=== PATIENT | male | born 1945 | race African-American/Black ===

== ENCOUNTER 2019-10-04 10:49 | Inpatient (IN) | payer MEDICARE ==
[~2019-10-04] VITALS: Ht 172.7 cm; Wt 108.4 kg
[2019-10-04] VITALS (12 sets, daily range): BP systolic 110–134; BP diastolic 57–84
--- NOTE | 2019-10-04 11:22 | Emergency Room Report ---
History of Present Illness General Chief Complaint: Generalized Weakness Source: Patient Present Illness HPI Patient presents with increasing weakness. He was trying to do his job today but was unable to. He feels dehydrated. He feels nauseated. There is no change in bowels. He denies any chest pain. He gets out of breath with exertion. He has diabetes but has not checked himself. He last saw his doctor 2 months ago. He has had weight loss. He feels depressed that he cannot perform his job. No fevers, chills, sore throat, palpitations, nausea, vomiting, diarrhea, constipation, dysuria, abdominal pain, joint pain, rashes, headache. 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 Nursing Documentation: PMH: Agreed; PSxH: Agreed Nursing Documentation-PMH Past Medical History: No History, Except For Hx Hypertension: Yes Hx Diabetes: Yes Review of Systems All Other Systems: negative except mentioned in HPI Physical Exam Vital Signs Date Time Temp Pulse Resp B/P (MAP) Pulse Ox O2 Delivery O2 Flow Rate FiO2 10/04/19 10:54 97.9 66 16 133/81 (98) 98 Room Air 10/04/19 11:16 100 Sp02 EP Interpretation: reviewed, normal General Appearance: no apparent distress, GCS 15, non-toxic, other - Slow to respond but appropriate Head: normocephalic Eyes: bilateral eye normal inspection, bilateral eye PERRL, bilateral eye EOMI ENT: dry mucus membranes Neck: full range of motion, supple, no meningismus Respiratory: lungs clear, normal breath sounds Cardiovascular #1: regular rate, rhythm, no edema Cardiovascular #2: 2+ radial (R) Gastrointestinal: normal inspection, non tender, no mass, non-distended, decreased bowel sounds Genitourinary: no CVA tenderness Musculoskeletal: back normal, normal range of motion, no calf tenderness Neurologic: alert, motor strength/tone normal - Subjective weakness, 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 Reason for critical care: Diabetic ketoacidosis, repeat evaluations, adjustments of fluid administration and insulin drip Possible complications: hypotension, hypertension, OH, shock, arrhythmias, metabolic acidosis, end organ damage, respiratory failure. Interventions: Fluid resuscitation, repeat evaluations, insulin drip, discussion with pharmacy, discussion with nursing staff Course: Patient presented with weight loss lack of appetite and signs of dehydration with history of diabetes. Based on labs consideration of diabetic ketoacidosis. Insulin drip begun after venous blood gas and increased fluid hydration ordered. Dosing of insulin discussed with pharmacy. Repeat evaluations based on decreasing blood glucose values. Repeat electrolytes with improvement in potassium and glucose. Insulin drip adjusted and discussed with ICU nurse. Discussed with HMO physician and admitting physician Consultations: nursing staff, family, pharmacy, O physician, admitting physician Performed by: Dr. Gates Tolerated well condition = critical Medical Decision Making Diagnostic Impression: Primary Impression: DKA (diabetic ketoacidoses) Qualified Codes: E11.10 - Type 2 diabetes mellitus with ketoacidosis without coma Additional Impression: Renal insufficiency ER Course Patient presents with weight loss, dehydration, lack of appetite and energy. Differential includes acute myocardial infarction, hyperglycemia, other electrolyte imbalance, occult neoplastic process, depression amongst others. Evaluation with EKG, chest x-ray and labs. Treatment with IV hydration. Accu- Chek ordered. EKG without injury. Chest x-ray no infiltrates. Labs with low bicarb and elevated glucose with slightly high potassium. Slightly elevated lipase. Elevated sedimentation rate. Venous blood gas ordered. VBG with metabolic acidosis. Begin insulin drip and admit to ICU - non- transferrable. Fluids continue. K will be followed but expect to drop with insulin. Discussed with Dr. Renteria that patient is non-transferable. Patient clinically improved with IV hydration. More alert with more energy. No infectious source or cardiac injury identified. Blood glucose improving. Potassium holding but in proving also. Prior to transfer to ICU discussed decreasing insulin drip dose with ER nurse. After patient in ICU I called the ICU nurse to ensure that insulin drip was decreased. It had been decreased to 4 units/h. Laboratory Tests Test 10/04/19 11:25 10/04/19 12:15 10/04/19 12:31 10/04/19 13:25 White Blood Count 3.9 K/UL (4.8-10.8) L Red Blood Count 5.81 M/UL (4.70-6.10) Hemoglobin 13.2 G/DL (14.2-18.0) L Hematocrit 43.7 % (42.0-52.0) Mean Corpuscular Volume 75 FL (80-99) L Mean Corpuscular Hemoglobin 22.7 PG (27.0-31.0) L Mean Corpuscular Hemoglobin Concent 30.1 G/DL (32.0-36.0) L Red Cell Distribution Width 14.4 % (11.6-14.8) Platelet Count 234 K/UL (150-450) Mean Platelet Volume 7.4 FL (6.5-10.1) Neutrophils (%) (Auto) % (45.0-75.0) Lymphocytes (%) (Auto) % (20.0-45.0) Monocytes (%) (Auto) % (1.0-10.0) Eosinophils (%) (Auto) % (0.0-3.0) Basophils (%) (Auto) % (0.0-2.0) Differential Total Cells Counted 100 Neutrophils % (Manual) 69 % (45-75) Lymphocytes % (Manual) 26 % (20-45) Monocytes % (Manual) 3 % (1-10) Eosinophils % (Manual) 2 % (0-3) Basophils % (Manual) 0 % (0-2) Band Neutrophils 0 % (0-8) Platelet Estimate Adequate Platelet Morphology Normal Dimorphic Red Blood Cells Polychromasia 1+ Hypochromasia 1+ Microcytosis 1+ Erythrocyte Sedimentation Rate 79 MM/HR (0-20) H Prothrombin Time 10.0 SEC (9.30-11.50) Prothrombin Time INR 0.9 (0.9-1.1) Activated Partial Thromboplast Time 24 SEC (23-33) Sodium Level 145 MMOL/L (136-145) 145 MMOL/L (136-145) Potassium Level 5.2 MMOL/L (3.5-5.1) H 4.5 MMOL/L (3.5-5.1) Chloride Level 104 MMOL/L (98-107) 106 MMOL/L (98-107) Carbon Dioxide Level 17 MMOL/L (21-32) L 21 MMOL/L (21-32) Anion Gap 24 mmol/L (5-15) H 18 mmol/L (5-15) H Blood Urea Nitrogen 34 mg/dL (7-18) H 32 mg/dL (7-18) H Creatinine 1.9 MG/DL (0.55-1.30) H 1.7 MG/DL (0.55-1.30) H Estimate Glomerular Filtration Rate 42.4 mL/min (>60) 48.2 mL/min (>60) Glucose Level 511 MG/DL (74-106) *H 446 MG/DL (74-106) H Calcium Level 9.2 MG/DL (8.5-10.1) 8.8 MG/DL (8.5-10.1) Total Bilirubin 0.7 MG/DL (0.2-1.0) Aspartate Amino Transferase (AST) 14 U/L (15-37) L Alanine Aminotransferase (ALT) 21 U/L (12-78) Alkaline Phosphatase 65 U/L (46-116) Total Creatine Kinase 88 U/L (26-308) Troponin I 0.028 ng/mL (0.000-0.056) Pro-B-Type Natriuretic Peptide 343 pg/mL (0-125) H Total Protein 7.5 G/DL (6.4-8.2) Albumin 3.2 G/DL (3.4-5.0) L Globulin 4.3 g/dL Albumin/Globulin Ratio 0.7 (1.0-2.7) L Lipase 439 U/L (73-393) H Thyroid Stimulating Hormone (TSH) 1.859 uiU/mL (0.358-3.740) Urine Color Pale yellow Urine Appearance Clear Urine pH 5 (4.5-8.0) Urine Specific [place] 1.015 (1.005-1.035) Urine Protein 1+ (NEGATIVE) H Urine Glucose (UA) 4+ (NEGATIVE) H Urine Ketones 4+ (NEGATIVE) H Urine Blood Negative (NEGATIVE) Urine Nitrite Negative (NEGATIVE) Urine Bilirubin Negative (NEGATIVE) Urine Urobilinogen Normal MG/DL (0.0-1.0) Urine Leukocyte Esterase Negative (NEGATIVE) Urine RBC 0-2 /HPF (0 - 0) H Urine WBC 0-2 /HPF (0 - 0) Urine Squamous Epithelial Cells None /LPF (NONE/OCC) Urine Bacteria Occasional /HPF (NONE) Venous Blood pH 7.278 Venous Blood Partial Pressure CO2 40.8 Venous Blood Partial Pressure O2 45.3 Venous Blood HCO3 18.7 Venous Blood Total Carbon Dioxide Pending Venous Blood Base Excess -7.7 Venous Blood Carboxyhemoglobin 0.6 % (0.5-1.5) Methemoglobin 0.6 Hemoglobin A1c 14.5 % (4.3-6.0) H EKG Diagnostic Results Rate: normal Rhythm: NSR ST Segments: other - slight peaked T waves with U waves Rhythm Strip Diag. Results EP Interpretation: yes Rhythm: NSR, no PVC's, no ectopy Chest X-Ray Diagnostic Results Chest X-Ray Diagnostic Results : Chest X-Ray Ordered: Yes Indication: Other EP Interpretation: Yes Interpretation: no consolidation, no effusion, no pneumothorax Impression: No acute disease Electronically Signed by: Electronically signed by James Gatse MD Last Vital Signs Date Time Temp Pulse Resp B/P (MAP) Pulse Ox O2 Delivery O2 Flow Rate FiO2 10/04/19 20:29 73 10/04/19 20:00 98.0 110/57 (74) 96 10/04/19 20:00 Room Air 10/04/19 19:00 20 10/04/19 11:16 100 Status: improved Disposition: ADMITTED INPATIENT Condition: Critical James Gates MD Oct 04, 2019 11:22
[2019-10-04 11:51] LABS: HEMATOCRIT 43.7 % (42.0-52.0); HEMOGLOBIN 13.2 G/DL (14.2-18.0); MEAN CORPUSCULAR VOLUME 75 FL (80-99); PLATELET COUNT 234 K/UL (150-450); RED BLOOD COUNT 5.81 M/UL (4.70-6.10); RED CELL DISTRIBUTION WIDTH 14.4 % (11.6-14.8); WHITE BLOOD COUNT 3.9 K/UL (4.8-10.8)
[2019-10-04 12:01] LABS: INR 0.9 (0.9-1.1)
[2019-10-04 12:14] LABS: ALANINE AMINOTRANSFERASE 21 U/L (12-78); ALBUMIN 3.2 G/DL (3.4-5.0); ALBUMIN/GLOBULIN RATIO 0.7 (1.0-2.7); ALKALINE PHOSPHATASE 65 U/L (46-116); ANION GAP 24 mmol/L (5-15); ASPARTATE AMINO TRANSFERASE 14 U/L (15-37); BILIRUBIN,TOTAL 0.7 MG/DL (0.2-1.0); BLOOD UREA NITROGEN 34 mg/dL (7-18); CALCIUM 9.2 MG/DL (8.5-10.1); CARBON DIOXIDE 17 MMOL/L (21-32); CHLORIDE 104 MMOL/L (98-107); CREATINE KINASE 88 U/L (26-308); CREATININE 1.9 MG/DL (0.55-1.30); POTASSIUM 5.2 MMOL/L (3.5-5.1); SODIUM 145 MMOL/L (136-145)
--- NOTE | 2019-10-04 12:22 | Diagnostic Imaging Report ---
Indication: Dyspnea Comparison: None A single view chest radiograph was obtained. Findings: Cardiomediastinal appearance is within normal limits for age. The lungs are clear. Pulmonary vascularity is appropriate. The diaphragmatic contour is smooth and costophrenic angles are sharp. No pleural effusions are identified. The bones are osteopenic. Impression: No acute findings
[2019-10-04 12:48] LABS: APPEARANCE,URINE CLEAR; BILIRUBIN, URINE NEGATIVE (NEGATIVE); COLOR,URINE PALE YELLOW; GLUCOSE, URINE (UA) 4+ (NEGATIVE); KETONES,URINE 4+ (NEGATIVE); LEUKOCYTE ESTERASE ,URINE NEGATIVE (NEGATIVE); NITRITE,URINE NEGATIVE (NEGATIVE); PH,URINE 5 (4.5-8.0); PROTEIN,URINE 1+ (NEGATIVE); UROBILINOGEN,URINE NORMAL MG/DL (0.0-1.0)
[2019-10-04] MEDS ORDERED: Insulin Human Regular 100units/ml 3ml IV PRN (13:15)
[2019-10-04] MEDS ORDERED: Insulin Reg 100 units Premix 100 ML IV SCH (13:45)
[2019-10-04 14:23] LABS: ANION GAP 18 mmol/L (5-15); BLOOD UREA NITROGEN 32 mg/dL (7-18); CALCIUM 8.8 MG/DL (8.5-10.1); CARBON DIOXIDE 21 MMOL/L (21-32); CHLORIDE 106 MMOL/L (98-107); CREATININE 1.7 MG/DL (0.55-1.30); POTASSIUM 4.5 MMOL/L (3.5-5.1); SODIUM 145 MMOL/L (136-145)
[2019-10-04] MEDS ORDERED: Insulin Reg 100 units Premix 100 ML IVPB SCH (16:00)
[2019-10-04] MEDS ORDERED: Insulin Human Regular 100units/ml 3ml IV ONE (16:00)
[2019-10-04] MEDS ORDERED: Insulin Human Regular 100units/ml 3ml IV SCH (16:00)
[2019-10-04] MEDS ORDERED: ASPIRIN81 MG ORAL (16:18)
[2019-10-04] MEDS ORDERED: JANUMET 50-1,01 EACH ORAL (16:18)
[2019-10-04] MEDS ORDERED: AMLODIPINE BES2.5 MG ORAL (16:18)
[2019-10-04] MEDS ORDERED: ALLOPURINOL100 M1 ORAL (16:18)
[2019-10-04] MEDS: Levemir Flexpen SUBQ SCH (18:38)
[2019-10-04] MEDS: Heparin 5000 units/ml inj SUBQ SCH (21:33)
[2019-10-04] MEDS: NovoLOG Insulin Flexpen SUBQ SCH (21:34)
[2019-10-04 23:53] LABS: ANION GAP 11 mmol/L (5-15); BLOOD UREA NITROGEN 31 mg/dL (7-18); CALCIUM 8.3 MG/DL (8.5-10.1); CARBON DIOXIDE 25 MMOL/L (21-32); CHLORIDE 113 MMOL/L (98-107); CREATININE 1.7 MG/DL (0.55-1.30); POTASSIUM 4.8 MMOL/L (3.5-5.1); SODIUM 149 MMOL/L (136-145)
[2019-10-05] VITALS (20 sets, daily range): BP systolic 122–183; BP diastolic 59–96
[2019-10-05] MEDS: NovoLOG Insulin Flexpen SUBQ SCH ×4 (05:52→21:10)
[2019-10-05 06:03] LABS: ANION GAP 16 mmol/L (5-15); BLOOD UREA NITROGEN 27 mg/dL (7-18); CARBON DIOXIDE 21 MMOL/L (21-32); CHLORIDE 112 MMOL/L (98-107); CREATININE 1.5 MG/DL (0.55-1.30); POTASSIUM 4.2 MMOL/L (3.5-5.1); SODIUM 149 MMOL/L (136-145)
[2019-10-05] MEDS ORDERED: LISINOPRIL20 MG ORAL (08:01)
[2019-10-05] MEDS ORDERED: METOPROLOL SUC100 MG ORAL (08:01)
[2019-10-05] MEDS ORDERED: LIPITOR80 MG ORAL (08:01)
[2019-10-05] MEDS ORDERED: FUROSEMIDE40 MG ORAL (08:01)
--- NOTE | 2019-10-05 08:15 | History and Physical Report ---
DATE OF ADMISSION: 10/04/2019 CHIEF COMPLAINT: Diabetic ketoacidosis. HISTORY OF PRESENT ILLNESS: The patient is a 74-year-old male. He has a history of diabetes and hypertension. He has been on oral hypoglycemic treatment, but has not been taking his medications. He presented to the emergency room with hyperglycemia, was noted to be in DKA. He is now admitted to the intensive care unit. He denies any fevers or chills. No chest pain. No shortness of breath. No cough. PAST MEDICAL HISTORY: As above. PAST SURGICAL HISTORY: None. CURRENT MEDICATIONS: Reconciled and reviewed. ALLERGIES: None. FAMILY HISTORY: Significant for diabetes and hypertension. SOCIAL HISTORY: Negative for tobacco or drugs. The patient drinks socially. REVIEW OF SYSTEMS: Negative except for high sugar. PHYSICAL EXAMINATION: VITAL SIGNS: Temperature 98.4, pulse 68, respirations 20, and blood pressure 154/77. GENERAL: The patient is well developed, in no apparent distress. HEART: Regular rate and rhythm. LUNGS: Clear. ABDOMEN: Soft, nontender, and nondistended. EXTREMITIES: Without clubbing, cyanosis, or edema. LABORATORY DATA: White count 5, hemoglobin 13, and platelet count 234,000. Sodium 149, potassium 4.8, chloride 113, bicarb is now 25. Creatinine was 1.7. A1c is 14.5. UA was clear. ASSESSMENT: This is a pleasant male, admitted with complaints of diabetic ketoacidosis secondary to medication noncompliance. PLAN: 1. Continue insulin drip until bicarb is normalized. 2. We will start the patient on Levemir twice a day. 3. Diabetes education. 4. Continue IV hydration. Giovanni Whitney M.D. DR: GARRICK JOB#: [id number] CC:
[2019-10-05] MEDS: Heparin 5000 units/ml inj SUBQ SCH ×2 (08:40→21:08)
[2019-10-05] MEDS: Levemir Flexpen SUBQ SCH ×2 (08:41→17:46)
[2019-10-05] MEDS ORDERED: Metoprolol Succinate XL 100mg tab ORAL SCH (09:00)
[2019-10-05] MEDS ORDERED: Aspirin Baby 81mg ORAL SCH (09:00)
[2019-10-05] MEDS ORDERED: Allopurinol 100mg Tab ORAL SCH (09:00)
[2019-10-05] MEDS ORDERED: NovoLOG Insulin Flexpen SUBQ SCH (21:00)
[2019-10-05] MEDS ORDERED: Heparin 5000 units/ml inj SUBQ SCH (21:00)
[2019-10-06] VITALS: BP 146/78
[2019-10-06 04:00] VITALS: BP 170/89
[2019-10-06] MEDS: NovoLOG Insulin Flexpen SUBQ SCH ×4 (06:57→20:48)
[2019-10-06 07:00] LABS: ANION GAP 9 mmol/L (5-15); BLOOD UREA NITROGEN 18 mg/dL (7-18); CALCIUM 8.2 MG/DL (8.5-10.1); CARBON DIOXIDE 25 MMOL/L (21-32); CHLORIDE 110 MMOL/L (98-107); CREATININE 1.2 MG/DL (0.55-1.30); POTASSIUM 3.7 MMOL/L (3.5-5.1); SODIUM 144 MMOL/L (136-145)
--- NOTE | 2019-10-06 07:20 | General Progress Note ---
Assessment/Plan Problem List: (1) DKA (diabetic ketoacidoses) ICD Codes: E11.10 - Type 2 diabetes mellitus with ketoacidosis without coma SNOMED: 606268573, [id number] Qualifiers: Qualified Codes: E11.10 - Type 2 diabetes mellitus with ketoacidosis without coma (2) Renal insufficiency ICD Codes: N28.9 - Disorder of kidney and ureter, unspecified SNOMED: 519117353, [id number] Status: stable Assessment/Plan: increase diabetes and bp rx follow up labs anticipate dc tomorrow Subjective ROS Limited/Unobtainable: No Constitutional: Reports: malaise, weakness HEENT: Reports: no symptoms Cardiovascular: Reports: no symptoms Respiratory: Reports: no symptoms Gastrointestinal/Abdominal: Reports: no symptoms Genitourinary: Reports: no symptoms Neurologic/Psychiatric: Reports: no symptoms Endocrine: Reports: no symptoms Hematologic/Lymphatic: Reports: no symptoms Allergies: Coded Allergies: No Known Allergies (Unverified , 10/04/19) All Systems: reviewed and negative except above Subjective bp high. BS high. no cp/sob Objective Last 24 Hour Vital Signs Date Time Temp Pulse Resp B/P (MAP) Pulse Ox O2 Delivery O2 Flow Rate FiO2 10/06/19 06:49 53 177/88 10/06/19 04:58 170/89 10/06/19 04:00 97.8 53 18 170/89 (116) 100 10/06/19 00:00 98.0 57 18 146/78 (100) 100 10/05/19 22:59 166/92 10/05/19 20:00 97.5 65 17 166/92 (116) 97 10/05/19 18:00 66 15 173/85 (114) 100 10/05/19 17:46 183/90 10/05/19 17:00 65 8 183/90 (121) 100 10/05/19 16:00 66 10/05/19 16:00 97.9 69 12 166/88 (114) 99 10/05/19 16:00 Room Air 10/05/19 15:00 61 13 136/72 (93) 96 10/05/19 14:00 67 13 136/75 (95) 98 10/05/19 13:00 98.1 77 7 159/96 (117) 99 10/05/19 12:00 Room Air 10/05/19 12:00 76 10/05/19 12:00 77 13 153/80 (104) 98 10/05/19 11:00 55 13 150/80 (103) 98 10/05/19 10:00 59 0 145/81 (102) 99 10/05/19 09:00 63 12 170/87 (114) 99 10/05/19 08:38 67 161/81 10/05/19 08:00 97.6 67 15 161/81 (107) 98 10/05/19 08:00 Room Air 10/05/19 08:00 66 Intake and Output 10/05/19 10/06/19 19:00 07:00 Intake Total 650 ml 2270 ml Output Total 1020 ml 2800 ml Balance -370 ml -530 ml Intake Oral 650 ml 2270 ml Output Urine Total 1020 ml 2800 ml # Voids 3 10 Laboratory Tests 10/06/19 06:30: Sodium Level 144, Potassium Level 3.7, Chloride Level 110H, Carbon Dioxide Level 25, Anion Gap 9, Blood Urea Nitrogen 18, Creatinine 1.2, Estimat Glomerular Filtration Rate > 60, Glucose Level 261H, Calcium Level 8.2L Height (Feet): 5 Height (Inches): 8.00 Weight (Pounds): 219 General Appearance: WD/WN Neck: supple Cardiovascular: regular rhythm Respiratory/Chest: lungs clear Abdomen: normal bowel sounds, non tender, soft, no organomegaly Edema: no edema noted Arm (L), no edema noted Arm (R), no edema noted Leg (L), no edema noted Leg (R), no edema noted Pedal (L), no edema noted Pedal (R), no edema noted Generalized Giovanni Whitney MD Oct 06, 2019 07:20
[2019-10-06 08:00] VITALS: BP 160/105
[2019-10-06] MEDS: Losartan 50mg tab ORAL SCH (08:58)
[2019-10-06] MEDS: Allopurinol 100mg Tab ORAL SCH (08:59)
[2019-10-06] MEDS: Aspirin Baby 81mg ORAL SCH (08:59)
[2019-10-06] MEDS: Metoprolol Succinate XL 100mg tab ORAL SCH (08:59)
[2019-10-06] MEDS ORDERED: Levemir Flexpen SUBQ SCH ×2 (09:00)
[2019-10-06] MEDS ORDERED: Aspirin Baby 81mg ORAL SCH (09:00)
[2019-10-06] MEDS: Heparin 5000 units/ml inj SUBQ SCH ×2 (09:00→20:48)
[2019-10-06] MEDS ORDERED: Allopurinol 100mg Tab ORAL SCH (09:00)
[2019-10-06] MEDS: Levemir Flexpen SUBQ SCH ×2 (10:20→18:30)
[2019-10-06 12:00] VITALS: BP 155/93
[2019-10-06 16:00] VITALS: BP 144/85
[2019-10-06 20:00] VITALS: BP 173/92
[2019-10-07] VITALS: BP 155/96
[2019-10-07 04:00] VITALS: BP 143/92
[2019-10-07] MEDS: NovoLOG Insulin Flexpen SUBQ SCH ×2 (06:39→11:57)
[2019-10-07] MEDS ORDERED: COZAAR50 MG ORAL (07:14)
[2019-10-07] MEDS ORDERED: LEVEMIR FL100 UNIT/1 SUBQ (07:14)
[2019-10-07 07:54] VITALS: BP 161/99
[2019-10-07] MEDS: Aspirin Baby 81mg ORAL SCH (07:58)
[2019-10-07] MEDS: Metoprolol Succinate XL 100mg tab ORAL SCH (07:58)
[2019-10-07] MEDS: Losartan 50mg tab ORAL SCH (07:58)
[2019-10-07] MEDS: Allopurinol 100mg Tab ORAL SCH (07:59)
[2019-10-07] MEDS: Heparin 5000 units/ml inj SUBQ SCH (08:00)
[2019-10-07] MEDS: Levemir Flexpen SUBQ SCH (08:03)
[2019-10-07 12:00] VITALS: BP 168/95
[2019-10-07] MEDS ORDERED: 1/2 NS 1000ml IV ONE (12:49)
--- NOTE | 2019-10-07 20:30 | Discharge Summary ---
DATE OF ADMISSION: 10/04/2019 DATE OF DISCHARGE: 10/07/2019 ADMISSION DIAGNOSES: 1. Diabetic ketoacidosis. 2. Hypertension. 3. Hyperlipidemia. DISCHARGE DIAGNOSES: 1. Diabetic ketoacidosis. 2. Hypertension. 3. Hyperlipidemia. HOSPITAL COURSE: The patient is a pleasant male, who was admitted with complaints of mild diabetic ketoacidosis. He was placed on an insulin drip initially in the intensive care unit with close monitoring of blood sugars. His gap closed and his bicarb improved. He was started on Levemir. On discharge, blood sugars were in the low 200s. The patient was educated on dietary and medication compliance. He had been noncompliant with medications on the outside. He has been asked to follow up with his PMD in one week. DISCHARGE MEDICATIONS: Please see discharge medication list for discharge medications. DIET: A cardiac diabetic diet. ACTIVITIES: Ad-ivonne. Giovanni Whitney M.D. DR: TRISTAN JOB#: [id number] CC:
== END 2019-10-07 12:50 | disposition home or self-care (01) | DRG 638 ==
LOC: EMR 11:33 → EDBEDREQ 13:03 → ICU 15:22 → 3E 10-05 18:22
DX: E11.10 Type 2 diabetes mellitus with ketoacidosis without coma (principal); N17.9 Acute kidney failure, unspecified; I10 Essential (primary) hypertension; Z91.14 Patient's other noncompliance with medication regimen; E78.5 Hyperlipidemia, unspecified
CPT/HCPCS: 36415; 71045; 80048; 80053; 81003; 82550; 82962; 83036; 83690; 83880; 84443; 84484; 85007; 85025; 85610; 85651; 85730; 87081; 93005; 96361; 96374; 96375; 99291; J1815; J2405; J7030; S5561